=== PATIENT | male | born 1980 | race African-American/Black ===

== ENCOUNTER 2020-04-11 13:20 | Emergency (ER) | payer SELFPAY ==
[2020-04-11 13:23] VITALS: BP 148/82; PULSE 81; RESP 20; TEMP 37.7; O2SAT 100
--- NOTE | 2020-04-11 13:28 | ED.DENTAL ---
HPI - Dental/Oral General Chief complaint: Dental/Oral Stated complaint: face and throat swollen Source: patient and RN notes reviewed Mode of arrival: ambulatory Limitations: no limitations History of Present Illness HPI Narrative: The patient, an occasional smoker/nondrinker, presents with a couple day worsening of couple week history of jaw pain. Patient states he has had prior course of amoxicillin, Toradol for right wisdom tooth discomfort. No fever measured, hoarseness, trismus; symptoms are mild, worse upon eating Related Data Allergies Allergy/AdvReac Type Severity Reaction Status Date / Time No Known Allergies Allergy Unverified 04/11/20 13:44 Review of Systems Review of Systems: Narrative: General/Constitutional: No weight loss,fever Eyes: N0: Redness,discharge Ears/Nose/Throat: No: Epistaxis,ear discharge Respiratory: Denies: Hemoptysis Gastrointestinal: No Vomiting, Bleeding-rectal PMFSH Comments At time of signature, agree with nursing past medical, surgical, social and family history. There is no relevant family history pertinent to the presenting complaint Exam Narrative: Exam Narrative: General Appearance: Well appearing, , Conjunctiva clear Neurological: A&O x3, Speech clear, , Normal affect Mouth/Throat: Appearing with mild right lower jaw swelling), Normal lips, MM moist, Uvula midline (scattered dental caries and fillings,, with rare fracture) Neck: Supple, No adenopathy Respiratory: Airway patent, No respiratory distress, Skin: Warm, Dry, Normal color Course Course Emergency Course: The patient has been informed that they may have pre-hypertension or Hypertension based on a BP reading in the department. I recommend that the patient call the primary care provider listed on their discharge instructions or a physician of their choice this week to arrange follow up for further evaluation of possible pre-hypertension or Hypertension Vital Signs Vital signs: Vital Signs Temperature 99.9 F H 04/11/20 13:23 Pulse Rate 81 04/11/20 13:23 Respiratory Rate 20 04/11/20 13:23 Blood Pressure 148/82 H 04/11/20 13:23 Pulse Oximetry 100 04/11/20 13:23 Temperature 99.9 F H 04/11/20 13:23 Pulse Rate 81 04/11/20 13:23 Respiratory Rate 20 04/11/20 13:23 Blood Pressure 148/82 H 04/11/20 13:23 Pulse Oximetry 100 04/11/20 13:23 Discharge Plan Discharge Clinical Impression: Abscess of jaw, right Patient Disposition: Home, Self-Care Condition: Stable Instructions: Antibiotic Form, Dental Abscess (ED) Prescriptions: New tramadol 50 mg tablet 50 mg PO TID PRN (Reason: pain) Qty: 15 RF: 1 amoxicillin-pot clavulanate [Augmentin] 500-125 mg tablet 1 tablet PO TID Qty: 30 RF: 0 Lidocaine Viscous 2 % solution 5 ml MUCOUS MEM QID PRN (Reason: pain) Qty: 100 RF: 0 Follow-up/Referrals: UNKNOWN,DOCTOR [Primary Care Provider] - Stand Alone Forms: Work/School Release IP Discharge Date/Time: 04/11/20 13:52
== END 2020-04-11 13:52 | disposition home or self-care (01) ==
PROVIDERS: Emergency Provider Emergency Medicine
DX: M27.2 Inflammatory conditions of jaws (principal)
CPT/HCPCS: 99213; G0463